=== PATIENT | male | born 1950 | race Caucasian/White ===

== ENCOUNTER 2016-08-02 19:43 | Inpatient (IN) | payer BC, OTHER ==
[2016-08-02] MEDS ORDERED: Aspirin 81 MG Tab.Chew PO ONE (20:17)
--- NOTE | 2016-08-02 20:19 | EDM.PDOC ---
ED HPI GENERAL MEDICAL PROBLEM - General Chief Complaint: Neurological Problem Stated Complaint: RIGHT SIDE PROBLEMS Time Seen by Provider: 08/02/16 19:50 - History of Present Illness INITIAL COMMENTS - FREE TEXT/NARRATIVE: 66-year-old male presents to the emergency room with right-sided weakness. Patient noted profound difficulty using his right hand around 4:30 our time. The patient may not felt quite right for this. The patient is ambulatory has just noticed some weakness on the right side and some difficulty with fine motor skills. Patient denies past medical problems including coronary artery disease diabetes, blood pressure problems or hyperlipidemia family history is nonrevealing. - Related Data Allergies Allergy/AdvReac Type Severity Reaction Status Date / Time No Known Allergies Allergy Verified 08/02/16 19:58 Home Meds: Home Meds Bimatoprost [LUMIGAN 0.01% Ophth Soln] 1 drop EYERT BID 03/09/14 [History] Brimonidine [Alphagan P 0.1% Ophth Soln] 1 drop EYERT DAILY 03/09/14 [History] Krill Oil 500 mg PO DAILY 08/02/16 [History] Social & Family History - Tobacco Use Smoking Status *Q: Current Every Day Smoker Years of Tobacco use: 53 Packs/Tins Daily: 0.5 Used Tobacco, but Quit: No Second Hand Smoke Exposure: No - Caffeine Use Caffeine Use: Reports: Coffee - Alcohol Use Days Per Week of Alcohol Use: 0 - Recreational Drug Use Recreational Drug Use: No ED ROS GENERAL - Review of Systems Review Of Systems: See Below Constitutional: Reports: No Symptoms HEENT: Reports: No Symptoms Respiratory: Reports: No Symptoms Cardiovascular: Reports: No Symptoms GI/Abdominal: Reports: No Symptoms : Reports: No Symptoms Musculoskeletal: Reports: No Symptoms Neurological: Reports: Weakness. Denies: Confusion, Dizziness, Headache, Seizure, Syncope Psychiatric: Reports: No Symptoms ED EXAM, NEURO - Physical Exam Exam: See Below Exam Limited By: No Limitations General Appearance: Alert, No Apparent Distress Eye Exam: Bilateral Eye: EOMI, Normal Inspection, PERRL Ears: Normal External Exam, Normal Canal, Hearing Grossly Normal, Normal TMs Nose: Normal Inspection, Normal Mucosa, No Blood Throat/Mouth: Normal Inspection, Normal Lips, Normal Teeth, Normal Gums, Normal Oropharynx, Normal Voice, No Airway Compromise Head Exam: Atraumatic, Normocephalic Neck: Normal Inspection. No: Lymphadenopathy (L), Lymphadenopathy (R) Respiratory/Chest: No Respiratory Distress, Lungs Clear, Normal Breath Sounds Cardiovascular: Normal Peripheral Pulses, Regular Rate, Rhythm, No Edema, No Murmur GI/Abdominal: Normal Bowel Sounds, Soft, Non-Tender Course - Vital Signs Last Recorded V/S: Last Vital Signs Temp 36.3 C 08/02/16 19:55 Pulse 81 08/02/16 19:55 Resp 18 08/02/16 19:55 BP 150/86 H 08/02/16 19:55 Pulse Ox 98 08/02/16 19:55 - Orders/Labs/Meds Orders: Active Orders 24 hr Category Date Time Status EKG Documentation Completion [RC] STAT Care 08/02/16 19:55 Active Height and Weight [RC] DAILY Care 08/02/16 22:51 Active Intake and Output [RC] QSHIFT Care 08/02/16 22:52 Active Oxygen Therapy [RC] PRN Care 08/02/16 22:51 Active RT Aerosol Therapy [RC] ASDIRECTED Care 08/02/16 22:53 Active Telemetry Monitoring [Cardiac Monitoring] [RC] . Care 08/02/16 22:57 Active DIRECTED Up With Assistance [RC] ASDIRECTED Care 08/02/16 22:51 Active Up ad Bianka [RC] ASDIRECTED Care 08/02/16 22:51 Active VTE/DVT Education [RC] PER UNIT ROUTINE Care 08/02/16 22:51 Active Vital Signs [RC] Q4H Care 08/02/16 22:51 Active Consult to Case Management [CONS] Routine Cons 08/02/16 22:53 Active Consult to Roofer [employer] [CONS] Routine Cons 08/02/16 22:53 Active OT Evaluation and Treatment [CONS] Routine Cons 08/02/16 22:53 Active PT Evaluation and Treatment [CONS] Routine Cons 08/02/16 22:53 Active Ang Head [CT] Stat Exams 08/02/16 21:25 Taken Ang Head w Cont [MR] Stat Exams 08/03/16 07:00 Ordered Ang Neck [CT] Stat Exams 08/02/16 21:25 Taken Ang Neck w Cont [MR] Stat Exams 08/03/16 07:00 Ordered Brain wo Cont [MR] Stat Exams 08/03/16 07:00 Ordered Carotid Comp [US] Routine Exams 08/03/16 07:00 Ordered Chest 1V Frontal [CR] Stat Exams 08/02/16 20:02 Taken Echo Comp wo Cont [US] Routine Exams 08/03/16 05:11 Ordered Head wo Cont [CT] Stat Exams 08/02/16 20:01 Taken BASIC METABOLIC PANEL,BMP [CHEM] AM Lab 08/03/16 05:11 Ordered BASIC METABOLIC PANEL,BMP [CHEM] AM Lab 08/04/16 05:11 Ordered BASIC METABOLIC PANEL,BMP [CHEM] AM Lab 08/05/16 05:11 Ordered BASIC METABOLIC PANEL,BMP [CHEM] AM Lab 08/06/16 05:11 Ordered CBC WITH AUTO DIFF [HEME] AM Lab 08/03/16 05:11 Ordered CBC WITH AUTO DIFF [HEME] AM Lab 08/04/16 05:11 Ordered CBC WITH AUTO DIFF [HEME] AM Lab 08/05/16 05:11 Ordered CBC WITH AUTO DIFF [HEME] AM Lab 08/06/16 05:11 Ordered LIPID PANEL [CHEM] AM Lab 08/03/16 05:11 Ordered MAGNESIUM [CHEM] AM Lab 08/03/16 05:11 Ordered MAGNESIUM [CHEM] AM Lab 08/04/16 05:11 Ordered MAGNESIUM [CHEM] AM Lab 08/05/16 05:11 Ordered MAGNESIUM [CHEM] AM Lab 08/06/16 05:11 Ordered Acetaminophen [Tylenol] Med 08/02/16 22:51 Active 650 mg PO Q4H PRN Acetaminophen/HYDROcodone [[place] 325-5 MG] Med 08/02/16 22:51 Active 1 tab PO Q4H PRN Albuterol/Ipratropium [DuoNeb 3.0-0.5 MG/3 ML] Med 08/02/16 22:51 Active 3 ml NEB Q4H PRN Aspirin [Halfprin] Med 08/03/16 09:00 Active 162 mg PO DAILY Bimatoprost Med 08/03/16 09:00 Pending 1 drop EYERT BID Bisacodyl [Dulcolax] Med 08/02/16 22:51 Active 5 mg PO DAILY PRN Brimonidine Med 08/03/16 09:00 Pending 1 drop EYERT DAILY Dextrose 5%-0.45% NaCl [Dextrose 5%-1/2 NS] 1,000 ml Med 08/03/16 01:00 Active IV ASDIRECTED Docusate Sodium/Sennosides [Senna Plus] Med 08/02/16 22:51 Active 1 tab PO BID PRN Enoxaparin [Lovenox] Med 08/03/16 09:00 Active 40 mg SUBCUT DAILY HYDROmorphone [Dilaudid] Med 08/02/16 22:51 Active 0.25 mg IVPUSH Q2H PRN LORazepam [Ativan] Med 08/02/16 22:51 Active 1 mg IV Q6H PRN Nicotine [Habitrol] Med 08/03/16 21:00 Active 21 mg TRDERM BEDTIME Ondansetron [Zofran] Med 08/02/16 22:51 Active 4 mg IV Q6H PRN Polyethylene Glycol 3350 [MiraLAX] Med 08/02/16 22:51 Active 17 gm PO DAILY PRN Promethazine [Phenergan] 12.5 mg Med 08/02/16 22:51 Active Sodium Chloride 0.9% [Normal Saline] 50 ml IV Q6H Remove Patch Med 08/03/16 21:00 Active 1 ea TRDERM BEDTIME Sodium Chloride 0.9% [Saline Flush] Med 08/02/16 22:53 Active 10 ml FLUSH ASDIRECTED PRN Temazepam [Restoril] Med 08/02/16 22:51 Active 15 mg PO BEDTIME PRN Saline Lock Insert [OM.PC] Routine Oth 08/02/16 22:51 Ordered Resuscitation Status Routine Resus Stat 08/02/16 22:51 Ordered Medication Orders Acetaminophen (Tylenol) 650 mg PO Q4H PRN PRN Reason: Pain (Mild 1-3)/fever Hydrocodone Bitart/Acetaminophen ([place] 325-5 Mg) 1 tab PO Q4H PRN PRN Reason: Pain (moderate 4-6) Albuterol/Ipratropium (Duoneb 3.0-0.5 Mg/3 Ml) 3 ml NEB Q4H PRN PRN Reason: Shortness Of Breath/wheezing Aspirin (Halfprin) 162 mg PO DAILY NAVYA Bisacodyl (Dulcolax) 5 mg PO DAILY PRN PRN Reason: Constipation Enoxaparin Sodium (Lovenox) 40 mg SUBCUT DAILY NAVYA Hydromorphone HCl (Dilaudid) 0.25 mg IVPUSH Q2H PRN PRN Reason: Pain (severe 7-10) Promethazine HCl 12.5 mg/ (Sodium Chloride) 50.5 mls @ 100 mls/hr IV Q6H PRN PRN Reason: Nausea/Vomiting Dextrose/Sodium Chloride (Dextrose 5%-1/2 Ns) 1,000 mls @ 100 mls/hr IV ASDIRECTED NAVYA Last Admin: 08/03/16 01:04 Dose: 100 mls/hr Lorazepam (Ativan) 1 mg IV Q6H PRN PRN Reason: Nausea/Vomiting Miscellaneous Information (Remove Patch) 1 ea TRDERM BEDTIME NAVYA Nicotine (Habitrol) 21 mg TRDERM BEDTIME NAVYA Non-Formulary Medication (Bimatoprost) 1 drop EYERT BID NAVYA Non-Formulary Medication (Brimonidine) 1 drop EYERT DAILY NAVYA Ondansetron HCl (Zofran) 4 mg IV Q6H PRN PRN Reason: Nausea/Vomiting Polyethylene Glycol (Miralax) 17 gm PO DAILY PRN PRN Reason: Constipation Senna/Docusate Sodium (Senna Plus) 1 tab PO BID PRN PRN Reason: Constipation Sodium Chloride (Saline Flush) 10 ml FLUSH ASDIRECTED PRN PRN Reason: Keep Vein Open Temazepam (Restoril) 15 mg PO BEDTIME PRN PRN Reason: Sleep Labs: Laboratory Tests 08/02/16 08/02/16 08/02/16 Range/Units 19:56 19:56 19:56 WBC 8.88 (4.23-9.07) K/mm3 RBC 4.85 (4.63-6.08) M/mm3 Hgb 14.1 (13.7-17.5) gm/L Hct 41.2 (40.1-51.0) % MCV 84.9 (79.0-92.2) fl MCH 29.1 (25.7-32.2) pg MCHC 34.2 (32.2-35.5) g/dl RDW Std Deviation 43.5 (35.1-43.9) fL Plt Count 277 (163-337) K/mm3 MPV 9.9 (9.4-12.3) fl Neutrophils % (Manual) 53 (40-60) % Band Neutrophils % 0 (0-10) % Lymphocytes % (Manual) 41 H (20-40) % Atypical Lymphs % 0 % Monocytes % (Manual) 3 (2-10) % Eosinophils % (Manual) 3 (0.8-7.0) % Basophils % (Manual) 0 L (0.2-1.2) Platelet Estimate Adequate Plt Morphology Comment Normal RBC Morph Comment Not Reportable PT 10.2 (8.0-13.0) SECONDS INR 0.94 APTT 25 (22-36) SECONDS Sodium 141 (136-145) mEq/L Potassium 3.7 (3.5-5.1) mEq/L Chloride 105 (98-107) mEq/L Carbon Dioxide 23 (21-32) mEq/L Anion Gap 16.7 H (5-15) BUN 17 (7-18) mg/dL Creatinine 1.1 (0.7-1.3) mg/dL Est Cr Clr Drug Dosing 67.84 mL/min Estimated GFR (MDRD) > 60 (>60) mL/min BUN/Creatinine Ratio 15.5 (14-18) Glucose 88 (80-115) mg/dL POC Glucose (80-115) mg/dL Calcium 9.4 (8.5-10.1) mg/dL Total Bilirubin 0.4 (0.2-1.0) mg/dL AST 16 (15-37) U/L ALT 24 (16-63) U/L Alkaline Phosphatase 64 (46-116) U/L Troponin I < 0.017 (0.00-0.056) ng/mL Total Protein 7.6 (6.4-8.2) g/dl Albumin 4.0 (3.4-5.0) g/dl Globulin 3.6 gm/dL Albumin/Globulin Ratio 1.1 (1-2) 08/02/16 Range/Units 19:58 WBC (4.23-9.07) K/mm3 RBC (4.63-6.08) M/mm3 Hgb (13.7-17.5) gm/L Hct (40.1-51.0) % MCV (79.0-92.2) fl MCH (25.7-32.2) pg MCHC (32.2-35.5) g/dl RDW Std Deviation (35.1-43.9) fL Plt Count (163-337) K/mm3 MPV (9.4-12.3) fl Neutrophils % (Manual) (40-60) % Band Neutrophils % (0-10) % Lymphocytes % (Manual) (20-40) % Atypical Lymphs % % Monocytes % (Manual) (2-10) % Eosinophils % (Manual) (0.8-7.0) % Basophils % (Manual) (0.2-1.2) Platelet Estimate Plt Morphology Comment RBC Morph Comment PT (8.0-13.0) SECONDS INR APTT (22-36) SECONDS Sodium (136-145) mEq/L Potassium (3.5-5.1) mEq/L Chloride (98-107) mEq/L Carbon Dioxide (21-32) mEq/L Anion Gap (5-15) BUN (7-18) mg/dL Creatinine (0.7-1.3) mg/dL Est Cr Clr Drug Dosing mL/min Estimated GFR (MDRD) (>60) mL/min BUN/Creatinine Ratio (14-18) Glucose (80-115) mg/dL POC Glucose 85 (80-115) mg/dL Calcium (8.5-10.1) mg/dL Total Bilirubin (0.2-1.0) mg/dL AST (15-37) U/L ALT (16-63) U/L Alkaline Phosphatase (46-116) U/L Troponin I (0.00-0.056) ng/mL Total Protein (6.4-8.2) g/dl Albumin (3.4-5.0) g/dl Globulin gm/dL Albumin/Globulin Ratio (1-2) Meds: Medications Generic Name Dose Route Start Last Admin Trade Name Freq PRN Reason Stop Dose Admin Acetaminophen 650 mg 08/02/16 22:51 Tylenol PO Q4H PRN Pain (Mild 1-3)/fever Hydrocodone Bitart/Acetaminophen 1 tab 08/02/16 22:51 [place] 325-5 Mg PO Q4H PRN Pain (moderate 4-6) Albuterol/Ipratropium 3 ml 08/02/16 22:51 Duoneb 3.0-0.5 Mg/3 Ml NEB Q4H PRN Shortness Of Breath/wheezing Aspirin 162 mg 08/03/16 09:00 Halfprin PO DAILY NAVYA Bisacodyl 5 mg 08/02/16 22:51 Dulcolax PO DAILY PRN Constipation Enoxaparin Sodium 40 mg 08/03/16 09:00 Lovenox SUBCUT DAILY NAVYA Hydromorphone HCl 0.25 mg 08/02/16 22:51 Dilaudid IVPUSH Q2H PRN Pain (severe 7-10) Promethazine HCl 12.5 mg/ 50.5 mls @ 100 mls/hr 08/02/16 22:51 Sodium Chloride IV Q6H PRN Nausea/Vomiting Dextrose/Sodium Chloride 1,000 mls @ 100 mls/hr 08/03/16 01:00 08/03/16 01:04 Dextrose 5%-1/2 Ns IV 100 mls/hr ASDIRECTED NAVYA Administration Lorazepam 1 mg 08/02/16 22:51 Ativan IV Q6H PRN Nausea/Vomiting Miscellaneous Information 1 ea 08/03/16 21:00 Remove Patch TRDERM BEDTIME NAVYA Nicotine 21 mg 08/03/16 21:00 Habitrol TRDERM BEDTIME NAVYA Non-Formulary Medication 1 drop 08/03/16 09:00 Bimatoprost EYERT BID [facility] Non-Formulary Medication 1 drop 08/03/16 09:00 Brimonidine EYERT DAILY [facility] Ondansetron HCl 4 mg 08/02/16 22:51 Zofran IV Q6H PRN Nausea/Vomiting Polyethylene Glycol 17 gm 08/02/16 22:51 Miralax PO DAILY PRN Constipation Senna/Docusate Sodium 1 tab 08/02/16 22:51 Senna Plus PO BID PRN Constipation Sodium Chloride 10 ml 08/02/16 22:53 Saline Flush FLUSH ASDIRECTED PRN Keep Vein Open Temazepam 15 mg 08/02/16 22:51 Restoril PO BEDTIME PRN Sleep Discontinued Medications Generic Name Dose Route Start Last Admin Trade Name Freq PRN Reason Stop Dose Admin Aspirin 162 mg 08/02/16 20:17 08/02/16 20:20 Aspirin PO 08/02/16 20:18 162 mg ONETIME ONE Administration Nicotine 21 mg 08/02/16 22:57 Habitrol TRDERM 08/02/16 22:58 ONETIME ONE - Re-Assessments/Exams Free Text/Narrative Re-Assessment/Exam: 08/03/16 00:57 The patient was brought into the emergency room with concerns of a left-sided CVA with right-sided deficit. 66-year-old male brought in by family members. Around 4:30 this afternoon the patient noticed weakness on his right side when he first talked things over with his and son there was a speech deficit this did clear up by the time he arrived to the emergency room. By the time he was here in the emergency room around 8:00 this evening he was out of the time range for thrombolytic therapy and still hadn't had a CT done however he had mild deficits noted his stroke score was 3 upon arrival here the nurse that did this thought there was a little bit of facial droop but by the time I evaluated him this seemed to resolved he had noticeable weakness in the right upper and lower extremity however he was able to resist gravity and resist pressure. His fiscal analyst strength on the right arm is noticeably weaker than on the left but felt to be perhaps 30-35 % weaker. Sensory deficit was noted on the right leg this did improve over time somewhat not complete resolution. The case was initially discussed with Dr. Rae neurology at [facility] in [place] who did not think this was large vessel involvement recommended CTA of head and neck this was done this did show a severe calcified atherosclerosis of the carotid bifurcation on the left with about a 5060% stenosis this also showed segment stenosis within a proximal branch of left MCA with no occlusion or aneurysm this was discussed with . His advice at that time was he would need a vascular surgery consult and they would accept him if needed. With discussion with the family they would rather go to [place]. I discussed the situation with , neurology at [facility]. His thoughts were he indeed needs a vascular surgeon we can keep the patient here or send him there he probably wouldn't have anything done immediately they've have vascular surgery capabilities and to a lesser degree some interventional stenting can be done however some of the more complex stuff they refer to academic centers such as [place] or [place]. I discussed this with the family they still are preferring [facility] however are quite comfortable staying here for further evaluation and if something more pressing develops then be transferred but understand that they can be seen as an outpatient early this next week at the [facility]. Dr. Hudson thought this was a very reasonable approach without the expensive flight transfer that probably would not speed up any intervention. He did recommend us forward MRI images and CTA images. The patient was trialed on fluids with normal speech and we had to caution him to drink a little slower however we will keep him nothing by mouth at this point. He had no difficulty with swallowing. Case was discussed with Dr. Diaz our hospitalist who will be happy to admit the patient. He actually saw the patient before the CTAs were done. Departure - Departure Time of Disposition: 01:08 Disposition: Admitted As Inpatient 68 Clinical Impression: CVA (cerebral vascular accident) - Discharge Information Referrals: PCP,None [Primary Care Provider] - Forms: ED Department Discharge - My Orders Last 24 Hours: My Active Orders 08/02/16 19:55 EKG Documentation Completion [RC] STAT 08/02/16 20:01 Head wo Cont [CT] Stat 08/02/16 20:02 Chest 1V Frontal [CR] Stat 08/02/16 21:25 Ang Head [CT] Stat Ang Neck [CT] Stat 08/03/16 01:00 Dextrose 5%-0.45% NaCl [Dextrose 5%-1/2 NS] 1,000 ml IV ASDIRECTED - Assessment/Plan Last 24 Hours: My Active Orders 08/02/16 19:55 EKG Documentation Completion [RC] STAT 08/02/16 20:01 Head wo Cont [CT] Stat 08/02/16 20:02 Chest 1V Frontal [CR] Stat 08/02/16 21:25 Ang Head [CT] Stat Ang Neck [CT] Stat 08/03/16 01:00 Dextrose 5%-0.45% NaCl [Dextrose 5%-1/2 NS] 1,000 ml IV ASDIRECTED
--- NOTE | 2016-08-02 22:26 | PCM.HP ---
H&P History of Present Illness - General Date of Service: 08/02/16 Admit Problem/Dx: TIA Source of Information: Patient, Old Records, Provider, RN Notes Reviewed - History of Present Illness Initial Comments - Free Text/Narative: This is 66-year-old white male with no past medical history who comes in with stroke like symptoms: right arm weakness and slurred speech. He denies any previous history of stroke in the past. However he is an active smoker. His initial workup in the emergency department shows an unremarkable CBC and chemistry. Patient received initial treatment in the emergency department. He will be heading over to radiology for head and neck CTA before he comes to the floor for further treatment. Patient was seen by me in while in ED. He will be admitted for TIA. He is full code. - Related Data Allergies/Adverse Reactions: Allergies Allergy/AdvReac Type Severity Reaction Status Date / Time No Known Allergies Allergy Verified 08/03/16 02:28 Home Medications: Home Meds Bimatoprost [LUMIGAN 0.01% Ophth Soln] 1 drop EYERT BEDTIME 03/09/14 [History] Brimonidine [Alphagan P 0.1% Ophth Soln] 1 drop EYERT DAILY 03/09/14 [History] Krill Oil 500 mg PO DAILY 08/02/16 [History] Lutein Extract/Zeaxanthin Ext [Lutein 15 MG Softgel] 1 cap PO DAILY 08/03/16 [ History] Past Medical History HEENT History: Reports: Glaucoma Other HEENT History: right eye glaucoma Gastrointestinal History: Reports: Other (See Below) Other Gastrointestinal History: umbilical hernia Musculoskeletal History: Reports: Osteoarthritis Other Musculoskeletal History: left hand arthritis - Past Surgical History HEENT Surgical History: Reports: None GI Surgical History: Reports: Hernia Repair/Other Social & Family History - Tobacco Use Smoking Status *Q: Current Every Day Smoker Years of Tobacco use: 53 Packs/Tins Daily: 0.5 Used Tobacco, but Quit: No Second Hand Smoke Exposure: No - Caffeine Use Caffeine Use: Reports: Coffee - Alcohol Use Days Per Week of Alcohol Use: 0 - Recreational Drug Use Recreational Drug Use: No H&P Review of Systems - Review of Systems: Review Of Systems: See Below General: Reports: Fever, Chills, Malaise, Weakness HEENT: Reports: No Symptoms Pulmonary: Denies: Shortness of Breath Cardiovascular: Denies: Chest Pain, Palpitations, Dyspnea on Exertion Gastrointestinal: Denies: Abdominal Pain, Nausea, Vomiting Genitourinary: Reports: No Symptoms Musculoskeletal: Reports: No Symptoms Skin: Reports: No Symptoms Psychiatric: Denies: Depression, Anxiety, Hallucinations Neurological: Reports: Pre-Existing Deficit, Trouble Speaking, Weakness (rigth arm), Change in Speech, Other. Denies: Difficulty Walking, Gait Disturbance Hematologic/Lymphatic: Reports: No Symptoms Immunologic: Reports: No Symptoms Exam - Exam Exam: See Below - Vital Signs Vital Signs: Last Vital Signs Temp 36.3 C 08/02/16 19:55 Pulse 81 08/02/16 19:55 Resp 18 08/02/16 19:55 BP 150/86 H 08/02/16 19:55 Pulse Ox 98 08/02/16 19:55 Weight: 86.183 kg - Exam General: Alert, Oriented, Cooperative. No: Mild Distress HEENT: Conjunctiva Clear, EACs Clear, EOMI, Hearing Intact, Mucosa Moist & [place] , Nares Patent, Normal Nasal Septum, Posterior Pharynx Clear, Pupils Equal, Pupils Reactive, TMs Clear Neck: Supple, Trachea Midline, +2 Carotid Pulse wo Bruit, Full Range of Motion Lungs: Clear to Auscultation, Normal Respiratory Effort Cardiovascular: Regular Rate, Regular Rhythm Abdomen: Normal Bowel Sounds, Soft. No: Organomegaly, Tenderness (Male) Exam: Deferred Rectal (Males) Exam: Deferred Back Exam: Normal Inspection, Decreased Range of Motion Extremities: Normal Inspection, Normal Pulses Peripheral Pulses: 2+: Posterior Tibial (L), Posterior Tibial (R), Dorsalis Pedis (L), Dorsalis Pedis (R) Skin: Warm, Dry, Intact Neuro Extensive - Mental Status: Oriented x3, Normal Cognition, Memory Intact Neuro Extensive - Motor, Sensory, Reflexes: CN II-XII Intact (fairly intact except for right arm weakness), Abnormal Gait Psychiatric: Alert, Normal Affect, Normal Mood - Patient Data Lab Results Last 24 hrs: Laboratory Results - last 24 hr 08/02/16 08/02/16 08/02/16 Range/Units 19:56 19:56 19:56 WBC 8.88 (4.23-9.07) K/mm3 RBC 4.85 (4.63-6.08) M/mm3 Hgb 14.1 (13.7-17.5) gm/L Hct 41.2 (40.1-51.0) % MCV 84.9 (79.0-92.2) fl MCH 29.1 (25.7-32.2) pg MCHC 34.2 (32.2-35.5) g/dl RDW Std Deviation 43.5 (35.1-43.9) fL Plt Count 277 (163-337) K/mm3 MPV 9.9 (9.4-12.3) fl Neutrophils % (Manual) 53 (40-60) % Band Neutrophils % 0 (0-10) % Lymphocytes % (Manual) 41 H (20-40) % Atypical Lymphs % 0 % Monocytes % (Manual) 3 (2-10) % Eosinophils % (Manual) 3 (0.8-7.0) % Basophils % (Manual) 0 L (0.2-1.2) Platelet Estimate Adequate Plt Morphology Comment Normal RBC Morph Comment Not Reportable PT 10.2 (8.0-13.0) SECONDS INR 0.94 APTT 25 (22-36) SECONDS Sodium 141 (136-145) mEq/L Potassium 3.7 (3.5-5.1) mEq/L Chloride 105 (98-107) mEq/L Carbon Dioxide 23 (21-32) mEq/L Anion Gap 16.7 H (5-15) BUN 17 (7-18) mg/dL Creatinine 1.1 (0.7-1.3) mg/dL Est Cr Clr Drug Dosing 67.84 mL/min Estimated GFR (MDRD) > 60 (>60) mL/min BUN/Creatinine Ratio 15.5 (14-18) Glucose 88 (80-115) mg/dL POC Glucose (80-115) mg/dL Calcium 9.4 (8.5-10.1) mg/dL Total Bilirubin 0.4 (0.2-1.0) mg/dL AST 16 (15-37) U/L ALT 24 (16-63) U/L Alkaline Phosphatase 64 (46-116) U/L Troponin I < 0.017 (0.00-0.056) ng/mL Total Protein 7.6 (6.4-8.2) g/dl Albumin 4.0 (3.4-5.0) g/dl Globulin 3.6 gm/dL Albumin/Globulin Ratio 1.1 (1-2) 08/02/16 Range/Units 19:58 WBC (4.23-9.07) K/mm3 RBC (4.63-6.08) M/mm3 Hgb (13.7-17.5) gm/L Hct (40.1-51.0) % MCV (79.0-92.2) fl MCH (25.7-32.2) pg MCHC (32.2-35.5) g/dl RDW Std Deviation (35.1-43.9) fL Plt Count (163-337) K/mm3 MPV (9.4-12.3) fl Neutrophils % (Manual) (40-60) % Band Neutrophils % (0-10) % Lymphocytes % (Manual) (20-40) % Atypical Lymphs % % Monocytes % (Manual) (2-10) % Eosinophils % (Manual) (0.8-7.0) % Basophils % (Manual) (0.2-1.2) Platelet Estimate Plt Morphology Comment RBC Morph Comment PT (8.0-13.0) SECONDS INR APTT (22-36) SECONDS Sodium (136-145) mEq/L Potassium (3.5-5.1) mEq/L Chloride (98-107) mEq/L Carbon Dioxide (21-32) mEq/L Anion Gap (5-15) BUN (7-18) mg/dL Creatinine (0.7-1.3) mg/dL Est Cr Clr Drug Dosing mL/min Estimated GFR (MDRD) (>60) mL/min BUN/Creatinine Ratio (14-18) Glucose (80-115) mg/dL POC Glucose 85 (80-115) mg/dL Calcium (8.5-10.1) mg/dL Total Bilirubin (0.2-1.0) mg/dL AST (15-37) U/L ALT (16-63) U/L Alkaline Phosphatase (46-116) U/L Troponin I (0.00-0.056) ng/mL Total Protein (6.4-8.2) g/dl Albumin (3.4-5.0) g/dl Globulin gm/dL Albumin/Globulin Ratio (1-2) Result Diagrams: 08/03/16 06:00 08/03/16 06:00 *Q Meaningful Use (ADM) - VTE *Q VTE Criteria *Q: - Stroke *Q Stroke Criteria *Q: - AMI *Q AMI Criteria *Q: Problem List Initiated/Reviewed/Updated: Yes Orders Last 24hrs: Active Orders 24 hr Category Date Time Status EKG Documentation Completion [RC] STAT Care 08/02/16 19:55 Active Ang Head [CT] Stat Exams 08/02/16 21:25 Ordered Ang Neck [CT] Stat Exams 08/02/16 21:25 Ordered Chest 1V Frontal [CR] Stat Exams 08/02/16 20:02 Taken Head wo Cont [CT] Stat Exams 08/02/16 20:01 Taken Assessment/Plan Comment:: Assessment/Plan: Acute: Stroke/TIA - Complaints of left arm weakness and slurred speech - Symptoms resolving but still has some weakness on right arm - Repeat Head CT scan report reads no acute intra-cranial abnormality - ED provider trying to obtain Head and Neck CTA - Brain MRI, Head and Neck MRA, 2D echo and Lipid panel in am since - Control blood pressure - Secondary Stroke Prevention: ASA, Statin with abnormal lipid panel and PT/ OT Nicotine Dependence - Active smoker - Counseled on smoking cessation - Nicotine Patch daily Plan: Admit to the floor with Tele Routine AM Labs Resume Home Meds PT/OT consult SW/CM for d/c planning Additional orders as above Code status: 1
[2016-08-02] MEDS ORDERED: Acetaminophen 325 MG Tab PO PRN (22:51)
[2016-08-02] MEDS ORDERED: LORazepam 2 MG/ML MDV IV PRN (22:51)
[2016-08-02] MEDS ORDERED: Bisacodyl 5 MG Tab PO PRN (22:51)
[2016-08-02] MEDS ORDERED: Acetaminophen/HYDROcodone 325-5 MG Tab PO PRN (22:51)
[2016-08-02] MEDS ORDERED: Albuterol/Ipratropium 3.0-0.5 MG/3 ML Neb Soln NEB PRN (22:51)
[2016-08-02] MEDS ORDERED: Polyethylene Glycol 3350 Powder 17 GM Packet PO PRN (22:51)
[2016-08-02] MEDS ORDERED: HYDROmorphone 0.5 MG/0.5 ML Syringe IVPUSH PRN (22:51)
[2016-08-02] MEDS ORDERED: Temazepam 15 MG Cap PO PRN (22:51)
[2016-08-02] MEDS ORDERED: Ondansetron 4 MG/2 ML SDV IV PRN (22:51)
[2016-08-02] MEDS ORDERED: Promethazine 12.5 MG in Sodium Chloride 0.9% 50 ML IV PRN (22:51)
[2016-08-02] MEDS ORDERED: Sodium Chloride 0.9% 10 ML Syringe FLUSH PRN (22:53)
[2016-08-02] MEDS ORDERED: Nicotine 21 MG/24 Hr Patch TRDERM ONE (22:57)
[2016-08-03] MEDS ORDERED: Dextrose 5%-0.45% NaCl 1,000 ML IV SCH (01:00)
--- NOTE | 2016-08-03 07:16 | PCM.PN ---
- General Info Date of Service: 08/03/16 Admission Dx/Problem (Free Text): TIA Subjective Update: Follow Up Functional Status: Reports: pain controlled, tolerating diet, ambulating, urinating. Denies: new symptoms - Review of Systems General: Reports: Weakness. Denies: Fever, Fatigue, Malaise, Chills HEENT: Reports: no symptoms Pulmonary: Denies: shortness of breath Cardiovascular: Denies: Chest Pain, Palpitations, Dyspnea on Exertion Gastrointestinal: Denies: Abdominal pain, Nausea, Vomiting Genitourinary: Reports: no symptoms Musculoskeletal: Reports: no symptoms Skin: Reports: no symptoms Neurological: Reports: No Symptoms, Weakness (right arm). Denies: Difficulty Walking, Gait Disturbance Psychiatric: Denies: depression, anxiety, agitation, cravings Systems Review Comment:: No overnight or acute issues. No new neuroglic complaints. He has no new complaints. - Patient Data Vitals - most recent: Last Vital Signs Temp 36.3 C 08/02/16 19:55 Pulse 81 08/02/16 19:55 Resp 18 08/02/16 19:55 BP 150/86 H 08/02/16 19:55 Pulse Ox 98 08/02/16 19:55 Weight - most recent: 84.731 kg Med Orders - Current: Current Medications Acetaminophen (Tylenol) 650 mg PO Q4H PRN PRN Reason: Pain (Mild 1-3)/fever Hydrocodone Bitart/Acetaminophen ([place] 325-5 Mg) 1 tab PO Q4H PRN PRN Reason: Pain (moderate 4-6) Albuterol/Ipratropium (Duoneb 3.0-0.5 Mg/3 Ml) 3 ml NEB Q4H PRN PRN Reason: Shortness Of Breath/wheezing Aspirin (Halfprin) 162 mg PO DAILY NAVYA Bisacodyl (Dulcolax) 5 mg PO DAILY PRN PRN Reason: Constipation Enoxaparin Sodium (Lovenox) 40 mg SUBCUT DAILY NAVYA Hydromorphone HCl (Dilaudid) 0.25 mg IVPUSH Q2H PRN PRN Reason: Pain (severe 7-10) Promethazine HCl 12.5 mg/ (Sodium Chloride) 50.5 mls @ 100 mls/hr IV Q6H PRN PRN Reason: Nausea/Vomiting Dextrose/Sodium Chloride (Dextrose 5%-1/2 Ns) 1,000 mls @ 100 mls/hr IV ASDIRECTED NAVYA Last Admin: 08/03/16 01:04 Dose: 100 mls/hr Lorazepam (Ativan) 1 mg IV Q6H PRN PRN Reason: Nausea/Vomiting Miscellaneous Information (Remove Patch) 1 ea TRDERM BEDTIME NAVYA Nicotine (Habitrol) 21 mg TRDERM BEDTIME NAVYA Non-Formulary Medication (Bimatoprost) 1 drop EYERT BID NAVYA Non-Formulary Medication (Brimonidine) 1 drop EYERT DAILY NAVYA Ondansetron HCl (Zofran) 4 mg IV Q6H PRN PRN Reason: Nausea/Vomiting Polyethylene Glycol (Miralax) 17 gm PO DAILY PRN PRN Reason: Constipation Senna/Docusate Sodium (Senna Plus) 1 tab PO BID PRN PRN Reason: Constipation Sodium Chloride (Saline Flush) 10 ml FLUSH ASDIRECTED PRN PRN Reason: Keep Vein Open Temazepam (Restoril) 15 mg PO BEDTIME PRN PRN Reason: Sleep Discontinued Medications Aspirin (Aspirin) 162 mg PO ONETIME ONE Stop: 08/02/16 20:18 Last Admin: 08/02/16 20:20 Dose: 162 mg Nicotine (Habitrol) 21 mg TRDERM ONETIME ONE Stop: 08/02/16 22:58 Last Admin: 08/03/16 05:33 Dose: Not Given - Exam General: alert, oriented, cooperative, no acute distress HEENT: Pupils equal, Pupils reactive, EOMI, Mucous membr. moist/pink Neck: supple, trachea midline, no JVD, no thyromegaly Lungs: Clear to auscultation, Normal respiratory effort Cardiovascular: Regular Rate, Regular Rhythm Abdomen: bowel sounds present, soft, no tenderness, no distension (Male) Exam: Deferred Back Exam: Normal Inspection, Decreased Range of Motion Extremities: no edema, normal pulses, no tenderness/swelling, no clubbing, no cyanosis, no calf tenderness Peripheral Pulses: 2+: Dorsalis Pedis (L), Dorsalis Pedis (R) Skin: warm, dry, intact Neurological: no new focal deficit, sensation intact, cranial nerves intact. No : strength equal bilateral Psy/Mental Status: alert, normal affect, normal mood - Problem List Review Problem List Initiated/Reviewed/Updated: Yes - My Orders Last 24 Hours: My Active Orders 08/03/16 03:04 Resuscitation Status Routine - Plan Plan:: Assessment/Plan: Acute: Stroke - Complaints of left arm weakness and slurred speech - Still some weakness on right arm - Repeat Head CT scan report reads no acute intra-cranial abnormality - Brain MRI, Head and Neck MRA, 2D echo pending - Control blood pressure - Secondary Stroke Prevention: ASA, Statin with abnormal lipid panel and PT/ OT Nicotine Dependence - Active smoker - Nicotine Patch daily Dyslipidemia - Abnormal lipid panel - Mixed in etiology - Low chol diet - Start Simvastatin 40 mg po daily Plan: He is clinically stable Routine AM Labs Resume Home Meds Continue PT/OT SW/CM for d/c planning Additional orders as above Code status: 1
--- NOTE | 2016-08-03 08:42 | CT ---
Head CT Technique: Multiple axial sections through the brain were obtained. Intravenous contrast was not utilized. Comparison: No previous intracranial imaging. Findings: Ventricles along with basal cisterns and sulci over the convexities are within normal limits for the patient's age. No abnormal parenchymal densities are seen. No evidence of intracranial hemorrhage. No midline shift or mass effect is seen. Bone window settings were reviewed which show no discrete calvarial abnormality. Minimal mucosal thickening seen within the sphenoid sinus. Impression: 1. Sinus findings which are felt to be incidental. 2. No acute intracranial abnormality is identified on noncontrast head CT study. If further evaluation for brain ischemia is needed, MRI with diffusion could be considered. Diagnostic code #2 Agree with preliminary report issued by [facility] ([facility] preliminary report dictated on 08/02/16, 9:17 PM Central Time)
--- NOTE | 2016-08-03 08:42 | CR ---
Chest: Frontal view of the chest was obtained. Comparison: Previous chest CT is available dated 03/09/14 but no prior chest x-ray is available. Findings: Old left upper rib deformity is seen compatible with healed fractures. Heart size and mediastinum are normal. Lungs are clear. Slight carotid artery calcification is seen. Impression: 1. Several old left upper rib fractures. 2. Nothing acute is appreciated on frontal chest x-ray. Diagnostic code #3
--- NOTE | 2016-08-03 08:42 | CT ---
CT angiogram of brain Technique: Multiple axial sections were obtained through the brain. Multiple MIP images were obtained. Findings: Carotid siphon is patent on both sides. Normal flow is seen into the anterior and middle cerebral arteries from the anterior circulation. No focal areas of stenosis or occlusion is seen. Basilar artery is patent. Posterior cerebral arteries are felt to be patent. No discrete aneurysm is appreciated. Impression: 1. No abnormality is appreciated on CT angiogram of the brain. If patient has persistent symptoms, MR angiogram could be considered. Diagnostic code #1 Agree with preliminary report issued by [facility] ([facility] preliminary report dictated on 08/03/16, 12:11 AM Central Time)
[2016-08-03] MEDS ORDERED: Latanoprost 0.005% Ophth Soln 2.5 ML Bottle EYERT SCH (09:00)
[2016-08-03] MEDS ORDERED: Enoxaparin 30 MG/0.3 ML Syringe SUBCUT SCH (09:00)
[2016-08-03] MEDS ORDERED: Brimonidine 0.2% Ophth Soln 5 ML Bottle EYERT SCH (09:00)
[2016-08-03] MEDS: Fish Oil/Omega-3 Fatty Acids 1 Gm Cap PO SCH (09:59)
[2016-08-03] MEDS: Aspirin 81 MG Tab.EC PO SCH (09:59)
[2016-08-03] MEDS: Simvastatin 40 MG Tab PO SCH (09:59)
[2016-08-03] MEDS: Enoxaparin 40 MG/0.4 ML Syringe SUBCUT SCH (10:00)
[2016-08-03] MEDS: ZEAXANTHIN PO SCH (10:01)
[2016-08-03] MEDS: [UNRECOGNIZED DRUG - OTHER] PO SCH (10:01)
[2016-08-03] MEDS: Krill Oil [Krill Oil] 500 MG PO SCH (10:01)
--- NOTE | 2016-08-03 10:38 | CT ---
CT angiogram of neck Technique: Multiple axial sections were obtained through the neck. Intravenous contrast was utilized. Multiple MIP images were obtained. Findings: Calcified plaque is identified most prominent within both carotid bulbs, worse on the right side. Mild narrowing noted of the distal left vertebral artery. No focal areas of stenosis seen within the carotid arteries or vertebral arteries. Incidental note of partially visualized old left-sided rib fractures is noted. Emphysematous changes seen within both upper lungs. Degenerative change is scattered within the cervical spine. Impression: 1. Calcified plaque primarily within the carotid bulbs. 2. Mild narrowing of the distal left vertebral artery. 3. No hemodynamic significant stenosis is seen. Note: If further evaluation for stenosis is needed, MR angiogram is helpful as calcified plaque can hide some areas of stenosis on CT exam. Diagnostic code #2 Agree with preliminary report issued by [facility] ([facility] preliminary report dictated on 08/03/16, 12:11 AM Central Time)
--- NOTE | 2016-08-03 12:20 | US ---
Carotid ultrasound: Duplex and color flow imaging was obtained of the carotid arteries. Comparison: Previous CT neck angiogram of 08/02/16. Mild amount of scattered hard, soft and calcified plaque noted within both carotid bulbs and at the origin of the internal and external carotid arteries. Intimal thickening is also noted on both sides. Plaque margins are somewhat irregular. Velocity measurements Right side: CCA has a peak systolic velocity of 1.66 m/s. ICA has a peak systolic velocity of 1.08 m/s and peak end-diastolic velocity of 0.45 m/s. ECA has a peak systolic velocity of 0.92 m/s. Vertebral artery as a peak systolic velocity of 0.80 m/s. ICA/CCA ratio is 0.6. Left side: CCA has a peak systolic velocity of 1.23 m/s. ICA has a peak systolic velocity of 0.88 m/s and peak end-diastolic velocity of 0.35 m/s. ECA has a peak systolic velocity of 1.23 m/s. Vertebral artery has a peak systolic velocity of 0.52 m/s. ICA/CCA ratio is 0.7. Impression: 1. Mild amount of scattered hard, soft and calcified plaque on both sides. Plaque shows irregular surface margins. 2. Velocity measurements within both internal carotid arteries correspond to stenosis in the range of 1-49%. Diagnostic code #3
[2016-08-03] MEDS ORDERED: Sodium Chloride 0.9% 10 ML Syringe FLUSH PRN (13:22)
[2016-08-03] MEDS: Gadobenate Dimeglumine 529 MG/ML 20 ML SDV IVPUSH ONE (14:33)
--- NOTE | 2016-08-03 15:34 | MR ---
MRI brain (with and without contrast) Technique: T1 sagittal; T2, T1, T2 FLAIR and diffusion axial; T1 FLAIR coronal; post-gadolinium T1 axial and post-gadolinium T1 FLAIR coronal images were obtained of the brain. Comparison: Previous head CT study of 08/02/16. Findings: Ventricles along with basal cisterns and sulci over the convexities appear within normal limits for the patient's age. Normal signal void seen within the major cerebral arteries within the skull base. Very minimal scattered areas of increased signal seen within the subcortical white matter felt to be of no significance in a patient of this age. Minimal increased signal within the left basal ganglia also felt to be of no significance. No other abnormal signal is seen within the brain parenchyma. There is small diffusion abnormality seen within the left basal ganglia extending into the lund radiata within the left parietal region. This is compatible with a small acute white matter infarct. No other abnormal diffusion is seen within the brain parenchyma. No midline shift or mass effect is seen. No abnormal areas of enhancement are seen. Impression: 1. Small diffusion abnormality within the left basal ganglia extending into the centrum semi-ovale within the left parietal region. This shows minimal increased signal on the FLAIR sequence indicating irreversible ischemia change. This is compatible with small area of white matter infarct. 2. Minimal areas of increased signal within other portions of the basal ganglia and subcortical white matter felt to be incidental. 3. No additional abnormality identified on MRI study of the brain. Diagnostic code #3
--- NOTE | 2016-08-03 15:34 | MR ---
MR angiogram of neck Technique: Post-contrast MR angiogram study was obtained through the neck. Reconstructed MIP images were obtained in multiple planes. Findings: Mild stenosis noted within the distal right common carotid artery at the carotid bulb. Internal carotid artery shows no significant stenosis. Other portions of the common carotid arteries are within normal limits. Narrowing is seen within the right vertebral artery distally. This was mentioned on previous CT angiogram to be on the left side which is incorrect. This is felt to be artifactual as MR angiogram of brain shows this area to better advantage and the distal vertebral arteries appear widely patent. Impression: 1. Artifactual narrowing of the distal right vertebral artery. This area appears normal on MR angiogram of brain. 2. Mild stenosis within the carotid bulb on the right side. 3. Other portions of the common carotid arteries, internal carotid arteries and vertebral arteries appear within normal limits. Diagnostic code #2
--- NOTE | 2016-08-03 15:34 | MR ---
MRA brain Technique: MR angiogram sequence was centered through the [place] and multiple reconstructed MIP images obtained. Normal flow into the distal vertebral arteries are seen as well as basilar artery. Posterior cerebral arteries appear within normal limits. Carotid siphon is normal. Normal anterior and middle cerebral arteries are seen. Impression: 1. No abnormality is identified on MR angiogram centered to the [place]. Diagnostic code #1
[2016-08-03] MEDS ORDERED: Aspirin 81 MG Tab.Chew PO ONE (20:09)
[2016-08-03] MEDS ORDERED: Latanoprost 0.005% Ophth Soln 2.5 ML Bottle EYEBOTH SCH (21:00)
[2016-08-03] MEDS ORDERED: Nicotine 21 MG/24 Hr Patch TRDERM SCH (21:00)
[2016-08-03] MEDS ORDERED: Brimonidine 0.2% Ophth Soln 5 ML Bottle EYEBOTH SCH (21:00)
[2016-08-04] MEDS: Simvastatin 40 MG Tab PO SCH (08:51)
[2016-08-04] MEDS: Fish Oil/Omega-3 Fatty Acids 1 Gm Cap PO SCH (08:51)
[2016-08-04] MEDS: Enoxaparin 40 MG/0.4 ML Syringe SUBCUT SCH (08:51)
[2016-08-04] MEDS: Aspirin 81 MG Tab.EC PO SCH (08:51)
[2016-08-04] MEDS: Krill Oil [Krill Oil] 500 MG PO SCH (08:52)
[2016-08-04] MEDS: [UNRECOGNIZED DRUG - OTHER] PO SCH (08:52)
[2016-08-04] MEDS: ZEAXANTHIN PO SCH (08:52)
[2016-08-04] MEDS ORDERED: Brimonidine 0.2% Ophth Soln 5 ML Bottle EYERT SCH (09:00)
--- NOTE | 2016-08-04 11:05 | PCM.DCSUM1 ---
Discharge Summary - Hospital Course Brief History: This is 66-year-old white male with no past medical history who comes in with complaints of right arm weakness associated with slurred speech and was admitted for medical management of stroke. - Discharge Data Discharge Date: 08/04/16 Discharge Disposition: Home, Self-Care 01 Condition: Good - Discharge Diagnosis/Problem(s) (1) Dyslipidemia (high LDL; low HDL) SNOMED Code(s): 673289550 ICD Code: E78.4 - OTHER HYPERLIPIDEMIA Status: Acute (2) CVA (cerebral vascular accident) SNOMED Code(s): 810055062 ICD Code: I63.9 - CEREBRAL INFARCTION, UNSPECIFIED Status: Acute Qualifiers: CVA mechanism: unspecified Qualified Code(s): I63.9 - Cerebral infarction, unspecified (3) Nicotine dependence SNOMED Code(s): 99955569 ICD Code: F17.200 - NICOTINE DEPENDENCE, UNSPECIFIED, UNCOMPLICATED Status : Acute Qualifiers: Nicotine product type: cigarettes Substance use status: uncomplicated Qualified Code(s): F17.210 - Nicotine dependence, cigarettes, uncomplicated (4) Atherosclerosis of both carotid arteries SNOMED Code(s): 381964154 ICD Code: I65.23 - OCCLUSION AND STENOSIS OF BILATERAL CAROTID ARTERIES Status: Acute - Patient Summary/Data Operative Procedure(s) Performed: None Complications: None Consults: Consultations 08/03/16 08:34 Consult to Dietary [Consult to Bee Keeper] [CONS] Routine Recommended Follow-up Testing/Procedures: None Hospital Course: Patient was primarily admitted for medical management of stroke. He he carried no past medical history except for being an active smoker. Patient complained of right-sided arm weakness and slurred speech on presentation to emergency department. However his symptoms slowly improved without initial intervention. At time of my examination, his slurred speech had completely resolved. His initial imaging study in the emergency department revealed a head CT scan without acute abnormal findings. However head and neck CTA showed some calcified plaques within the carotid bulbs and mild narrowing of the distal left vertebral artery with no hemodynamic significant stenosis observed. His carotid ultrasound further confirmed atherosclerosis on both carotid arteries with no significant stenosis. Head and neck MRA again supported the current abnormal findings as noted on head and neck CTA. His Brain MRI however showed a small diffusion abnormality within the left basal ganglia extending into the centrum semi-ovale within the left parietal region indicating irreversible ischemia. On this admission, he was placed on aspirin, low-cholesterol diet, PT and OT for hoahaoism of his strength and later on he was put on statin for his dyslipidemia. Patient was provided with nicotine patch and he was counseled on smoking cessation. His hospital course was uncomplicated. 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 His EKG was benign and no abnormal telemetry was ever recorded during his short stay. His 2-D echo registered a baseline normal cardiac functions. Patient was stable for discharge. He was advised to take all medications as directed. He was further advised to quit smoking. He was counseled on lifestyle modification to reduce his risks for recurrent stroke in the near future: regular exercise, eat proper diet and quit smoking. He is to follow-up with specialist in [place] and with his family doctor as needed right after discharge. The patient expressed understanding and in agreement with the plans as discussed above. All questions were answered. On the day of his discharge, he reports continued improvement of his right arm weakness. - Patient Instructions Diet: Heart Healthy Diet, Usual Diet as Tolerated Activity: As Tolerated Driving: Do Not Drive Showering/Bathing: May Shower Notify Provider of: Fever, Increased Pain, Swelling and Redness, Nausea and/or Vomiting Other/Special Instructions: - Please take all medications as directed. - Follow up appointment with your family doctor and vascular [facility] in [place] after discharge. - Recommend you exercise regularly, eat properly, and stop smoking. - Call your doctor for any questions or concerns - Discharge Plan Prescriptions/Med Rec: Aspirin [Halfprin] 162 mg PO DAILY #30 tab.ec Fish Oil/[place]-3 Fatty Acids [Fish Oil 1,000 MG] 1 gm PO DAILY #30 cap Nicotine [Habitrol] 21 mg TRDERM BEDTIME #30 patch Rosuvastatin [Crestor] 20 mg PO BEDTIME #60 tablet Home Medications: Home Meds Bimatoprost [LUMIGAN 0.01% Ophth Soln] 1 drop EYERT BEDTIME 03/09/14 [History] Brimonidine [Alphagan P 0.1% Ophth Soln] 1 drop EYERT DAILY 03/09/14 [History] Krill Oil 500 mg PO DAILY 08/02/16 [History] Lutein Extract/Zeaxanthin Ext [Lutein 15 MG Softgel] 1 cap PO DAILY 08/03/16 [ History] Aspirin [Halfprin] 162 mg PO DAILY #30 tab.ec 08/04/16 [Rx] Fish Oil/[place]-3 Fatty Acids [Fish Oil 1,000 MG] 1 gm PO DAILY #30 cap 08/04/16 [Rx] Nicotine [Habitrol] 21 mg TRDERM BEDTIME #30 patch 08/04/16 [Rx] Rosuvastatin [Crestor] 20 mg PO BEDTIME #60 tablet 08/04/16 [Rx] Patient Handouts: Stroke Prevention, [id number], Ischemic Stroke Treated Without Warfarin, [id number], Food Choices to Lower Your Triglycerides, Fat and Cholesterol Restricted Diet, [id number], High Cholesterol Referrals: PCP,None [Primary Care Provider] - - Discharge Summary/Plan Comment DC Time >30 min.: Yes (45 mins) Discharge Summary/Plan Comment: Discharge to Home - General Info Date of Service: 08/04/16 Admission Dx/Problem (Free Text: TIA Subjective Update: Follow Up Functional Status: Reports: pain controlled, tolerating diet, ambulating, urinating. Denies: new symptoms - Review of Systems General: Reports: Weakness. Denies: Fever, Fatigue, Malaise, Chills HEENT: Reports: no symptoms Pulmonary: Denies: shortness of breath Cardiovascular: Denies: Chest Pain, Dyspnea on Exertion, Edema Gastrointestinal: Denies: Abdominal pain, Nausea, Vomiting Genitourinary: Reports: no symptoms Musculoskeletal: Reports: no symptoms Skin: Reports: no symptoms Neurological: Reports: Pre-Existing Deficit, Weakness (right arm). Denies: Confusion, Difficulty Walking, Gait Disturbance Psychiatric: Denies: depression, anxiety, agitation, hallucinations Systems Review Comment: No overnight or acute issues. He is doing relatively well. He has no new complaints. - Patient Data Vitals - Most Recent: Last Vital Signs Temp 37.3 C 08/04/16 07:48 Pulse 70 08/04/16 07:48 Resp 16 08/04/16 07:48 BP 141/80 H 08/04/16 07:48 Pulse Ox 96 08/04/16 07:48 Weight - Most Recent: 84.595 kg I&O - Last 24 hours: Intake & Output 08/03/16 08/04/16 08/04/16 22:59 06:59 14:59 Intake Total 2410 600 Output Total 1600 Balance 810 600 Lab Results - Last 24 hrs: Laboratory Results - last 24 hr 08/04/16 08/04/16 Range/Units 05:50 05:50 WBC 10.02 H (4.23-9.07) K/mm3 RBC 4.64 (4.63-6.08) M/mm3 Hgb 13.5 L (13.7-17.5) gm/L Hct 39.9 L (40.1-51.0) % MCV 86.0 (79.0-92.2) fl MCH 29.1 (25.7-32.2) pg MCHC 33.8 (32.2-35.5) g/dl RDW Std Deviation 43.8 (35.1-43.9) fL Plt Count 274 (163-337) K/mm3 MPV 10.4 (9.4-12.3) fl Neut % (Auto) 60.6 (34.0-67.9) % Lymph % (Auto) 29.9 (21.8-53.1) % [place] % (Auto) 6.4 (5.3-12.2) % Eos % (Auto) 2.4 (0.8-7.0) Baso % (Auto) 0.4 (0.1-1.2) % Neut # (Auto) 6.07 H (1.78-5.38) K/mm3 Lymph # (Auto) 3.00 (1.32-3.57) K/mm3 [place] # (Auto) 0.64 (0.30-0.82) K/mm3 Eos # (Auto) 0.24 (0.04-0.54) K/mm3 Baso # (Auto) 0.04 (0.01-0.08) K/mm3 Sodium 141 (136-145) mEq/L Potassium 4.0 (3.5-5.1) mEq/L Chloride 106 (98-107) mEq/L Carbon Dioxide 25 (21-32) mEq/L Anion Gap 14.0 (5-15) BUN 18 (7-18) mg/dL Creatinine 1.0 (0.7-1.3) mg/dL Est Cr Clr Drug Dosing 74.63 mL/min Estimated GFR (MDRD) > 60 (>60) mL/min BUN/Creatinine Ratio 18.0 (14-18) Glucose 105 (80-115) mg/dL Calcium 8.5 (8.5-10.1) mg/dL Magnesium 1.9 (1.8-2.4) mg/dl Med Orders - Current: Current Medications Acetaminophen (Tylenol) 650 mg PO Q4H PRN PRN Reason: Pain (Mild 1-3)/fever Hydrocodone Bitart/Acetaminophen ([place] 325-5 Mg) 1 tab PO Q4H PRN PRN Reason: Pain (moderate 4-6) Albuterol/Ipratropium (Duoneb 3.0-0.5 Mg/3 Ml) 3 ml NEB Q4H PRN PRN Reason: Shortness Of Breath/wheezing Aspirin (Halfprin) 162 mg PO DAILY [facility] Last Admin: 08/04/16 08:51 Dose: 162 mg Bisacodyl (Dulcolax) 5 mg PO DAILY PRN PRN Reason: Constipation Brimonidine Tartrate (Alphagan 0.2% Ophth Soln) 0 ml EYERT DAILY [facility] Last Admin: 08/04/16 08:50 Dose: 1 drop Enoxaparin Sodium (Lovenox) 40 mg SUBCUT DAILY [facility] Last Admin: 08/04/16 08:51 Dose: 40 mg Fish Oil (Fish Oil) 1 gm PO DAILY [facility] Last Admin: 08/04/16 08:51 Dose: 1 gm Hydromorphone HCl (Dilaudid) 0.25 mg IVPUSH Q2H PRN PRN Reason: Pain (severe 7-10) Promethazine HCl 12.5 mg/ (Sodium Chloride) 50.5 mls @ 100 mls/hr IV Q6H PRN PRN Reason: Nausea/Vomiting Latanoprost (Xalatan 0.005% Ophth Soln) 0 ml EYERT BEDTIME [facility] Lorazepam (Ativan) 1 mg IV Q6H PRN PRN Reason: Nausea/Vomiting Miscellaneous Information (Remove Patch) 1 ea TRDERM BEDTIME [facility] Last Admin: 08/03/16 22:24 Dose: Not Given Nicotine (Habitrol) 21 mg TRDERM BEDTIME [facility] Last Admin: 08/03/16 22:23 Dose: Not Given Ondansetron HCl (Zofran) 4 mg IV Q6H PRN PRN Reason: Nausea/Vomiting Lutein Extract/Zeaxanthin Ext [ Lutein 15 Mg Softgel ] 1 Ca 0 each PO DAILY [facility] Last Admin: 08/04/16 08:52 Dose: Not Given Krill Oil [Krill Oil (] 500 Mg) 0 each PO DAILY [facility] Last Admin: 08/04/16 08:52 Dose: Not Given Polyethylene Glycol (Miralax) 17 gm PO DAILY PRN PRN Reason: Constipation Senna/Docusate Sodium (Senna Plus) 1 tab PO BID PRN PRN Reason: Constipation Simvastatin (Zocor) 40 mg PO DAILY [facility] Last Admin: 08/04/16 08:51 Dose: 40 mg Sodium Chloride (Saline Flush) 10 ml FLUSH ASDIRECTED PRN PRN Reason: Keep Vein Open Sodium Chloride (Saline Flush) 20 ml FLUSH ONETIME PRN PRN Reason: Keep Vein Open Last Admin: 08/03/16 14:33 Dose: 20 ml Temazepam (Restoril) 15 mg PO BEDTIME PRN PRN Reason: Sleep Discontinued Medications Aspirin (Aspirin) 162 mg PO ONETIME ONE Stop: 08/02/16 20:18 Last Admin: 08/02/16 20:20 Dose: 162 mg Brimonidine Tartrate (Alphagan 0.2% Ophth Soln) 0 ml EYERT DAILY [facility] Last Admin: 08/03/16 10:00 Dose: 1 drop Brimonidine Tartrate (Alphagan 0.2% Ophth Soln) 0 ml EYEBOTH BID [facility] Last Admin: 08/03/16 22:23 Dose: Not Given Gadobenate Dimeglumine (Multihance) 20 ml IVPUSH ONETIME ONE Stop: 08/03/16 13:23 Last Admin: 08/03/16 14:33 Dose: 20 ml Dextrose/Sodium Chloride (Dextrose 5%-1/2 Ns) 1,000 mls @ 100 mls/hr IV ASDIRECTED [facility] Last Admin: 08/03/16 01:04 Dose: 100 mls/hr Latanoprost (Xalatan 0.005% Ophth Soln) 0 ml EYERT BID [facility] Last Admin: 08/03/16 10:01 Dose: Not Given Latanoprost (Xalatan 0.005% Ophth Soln) 0 ml EYEBOTH BEDTIME [facility] Last Admin: 08/03/16 22:21 Dose: 1 drop Nicotine (Habitrol) 21 mg TRDERM ONETIME ONE Stop: 08/02/16 22:58 Last Admin: 08/03/16 05:33 Dose: Not Given - Exam General: Reports: alert, oriented, cooperative, no acute distress HEENT: Reports: Pupils equal, Pupils reactive, EOMI, Mucous membr. moist/pink Neck: Reports: supple, trachea midline, no JVD, no thyromegaly Lungs: Reports: Clear to auscultation, Normal respiratory effort Cardiovascular: Reports: Regular Rate, Regular Rhythm Abdomen: Reports: bowel sounds present, soft, no tenderness, no distension (Male) Exam: Deferred Rectal (Males) Exam: Deferred Back Exam: Reports: Normal Inspection, Decreased Range of Motion Extremities: Reports: no edema, normal pulses, no tenderness/swelling, no clubbing, no cyanosis, no calf tenderness Skin: Reports: warm, dry, intact Neurological: Reports: no new focal deficit, normal gait, normal speech, normal tone, sensation intact, other (baseline right arm weakness). Denies: strength equal bilateral Psy/Mental Status: Reports: alert, normal affect, normal mood *Q Meaningful Use (DIS) - VTE *Q VTE Criteria *Q: - Stroke *Q Stroke Criteria *Q: - AMI *Q AMI Criteria *Q:
[2016-08-04 12:01] VITALS: BP 141/69
[2016-08-04] MEDS ORDERED: Latanoprost 0.005% Ophth Soln 2.5 ML Bottle EYERT SCH (21:00)
== END 2016-08-04 16:12 | disposition home or self-care (01) | DRG 45 ==
LOC: JD.ED 19:43 → JD.MS 08-03 01:17
PROVIDERS: ADMIT Internal Medicine; ATTEND Internal Medicine
DX: I63.9 Cerebral infarction, unspecified (principal); I65.23 Occlusion and stenosis of bilateral carotid arteries; H40.9 Unspecified glaucoma; M19.042 Primary osteoarthritis, left hand; E78.5 Hyperlipidemia, unspecified; F17.200 Nicotine dependence, unspecified, uncomplicated; Z79.899 Other long term (current) drug therapy
CPT/HCPCS: 36415; 70450; 70450-26; 70496; 70496-26; 70498; 70498-26; 70544; 70544-26; 70548; 70548-26; 70553; 70553-26; 71010; 71010-26; 80048; 80053; 80061; 82962; 83735; 84484; 85025; 85610; 85730; 93005; 93306; 93880; 93880-26; 96360; 97112-GP; 97161-GP; 97165-GO; 99284; 99285-25; A9270-GY; A9577; J1650; J7042; J7050